=== PATIENT | female | born 1955 | race Two or more races ===

== ENCOUNTER 2022-04-20 09:25 | Outpatient (CLI) | payer OTHER | END 2022-04-20 15:03 | disposition home or self-care (01) | LOC: RX STUDY 09:25 | DX: R13.10 Dysphagia, unspecified (principal) ==

== ENCOUNTER 2022-08-31 12:26 | Emergency (ER) | payer OTHER ==
[~2022-08-31] VITALS: Ht 157.5 cm; Wt 69.4 kg
[2022-08-31] MEDS ORDERED: BUTALBIT-ACETA1 EACH PO (16:22)
== END 2022-08-31 16:37 | disposition home or self-care (01) ==
LOC: ER 12:26
DX: R51.9 Headache, unspecified (principal); I10 Essential (primary) hypertension